=== PATIENT | female | born 1960 | race Caucasian/White ===

== ENCOUNTER → 2023-06-01 18:11 | Outpatient (REF) | payer BC, SELFPAY | LOC: WDC 18:11 | PROVIDERS: ATTENDING PHYSICIAN Obstetrics & Gynecology; FAMILY PHYSICIAN Family Medicine | DX: Z12.31 Encounter for screening mammogram for malignant neoplasm of breast (principal) | CPT/HCPCS: 77063; 77067 ==

== ENCOUNTER → 2023-12-23 11:49 | Outpatient (REF) | payer BC, SELFPAY ==
[2023-12-23 14:20] LABS: ALT (SGPT) 42 U/L (0-35); AST (SGOT) 47 U/L (14-36); Albumin 4.5 g/dl (3.5-5.0); Alkaline Phosphatase 93 U/L (38-126); Blood Urea Nitrogen 17 mg/dl (7-17); Calcium 9.8 mg/dl (8.4-10.2); Carbon Dioxide 28 mmol/L (22-30); Chloride 100 mmol/L (98-107); Glucose 95 mg/dl (70-99); Potassium 4.3 mmol/L (3.5-5.1); Sodium 140 mmol/L (135-145); Total Bilirubin 0.9 mg/dl (0.2-1.3); Total Protein 6.8 g/dl (6.3-8.2); eGFR > 60.00
== END ==
LOC: RAD 11:49
PROVIDERS: ATTENDING PHYSICIAN Family Medicine
DX: R10.32 Left lower quadrant pain (principal); R10.84 Generalized abdominal pain
CPT/HCPCS: 36415; 74177; 80053; Q9967

== ENCOUNTER → 2024-06-02 13:05 | Outpatient (REF) | payer BC, SELFPAY | LOC: WDC 13:05 | PROVIDERS: ATTENDING PHYSICIAN Obstetrics & Gynecology; FAMILY PHYSICIAN Family Medicine | DX: Z12.31 Encounter for screening mammogram for malignant neoplasm of breast (principal) | CPT/HCPCS: 77063; 77067 ==

== ENCOUNTER 2024-07-25 12:17 | Emergency (ER) | payer BC, SELFPAY ==
[2024-07-25 12:24] VITALS: BP 122/79
[2024-07-25 12:44] LABS: % Basophils 0.5 % (0-2); % Eosinophils 0.7 % (0-6); % Immature Granulocytes 0.2 % (0-0.5); % Lymphocytes 22.2 % (20.5-51.1); % Monocytes 6.9 % (1.7-9.3); % Neutrophils 69.5 % (42.2-75.2); Absolute Eosinophils 0.1 10^3/uL (0-0.7); Absolute Lymphocytes 1.9 10^3/uL (1.2-3.4); Absolute Monocytes 0.6 10^3/uL (0.1-0.6); Hemoglobin 13.6 g/dL (12.0-16.0); Mean Corp Hgb Conc. 32.4 g/dL (33.0-37.0); Mean Corpuscular Hgb 32.1 pg (27.0-31.0); Mean Corpuscular Volume 99.1 fL (81.0-99.0); Mean Platelet Volume 10.8 fL (7.4-10.4); Nucleated Red Blood Cells % 0 %; Platelet Count 211 10^3/uL (130-400); Red Blood Cell Count 4.24 10^6/uL (4.20-5.40); Red Cell Dist. Width 12.4 % (11.5-14.5); White Blood Cell Count 8.6 10^3/uL (4.8-10.8)
[2024-07-25 13:00] LABS: COVID-19 Antigen Negative (Negative)
[2024-07-25 13:09] LABS: ALT (SGPT) 43 U/L (0-35); AST (SGOT) 37 U/L (14-36); Albumin 3.7 g/dl (3.5-5.0); Alkaline Phosphatase 116 U/L (38-126); Blood Urea Nitrogen 14 mg/dl (7-17); Calcium 9.4 mg/dl (8.4-10.2); Carbon Dioxide 29 mmol/L (22-30); Chloride 104 mmol/L (98-107); Glucose 102 mg/dl (70-99); Sodium 141 mmol/L (135-145); Total Bilirubin 0.7 mg/dl (0.2-1.3); Total Protein 6.4 g/dl (6.3-8.2); eGFR > 60.00
--- NOTE | 2024-07-25 15:43 | ED.GENMED ---
History of Present Illness
General
Chief Complaint: Weakness
Source: patient
Exam Limitations: none
Time Seen by Provider: 07/25/24 15:13
History of Present Illness
History of Present Illness:
63yoF with a history of DOROTHY, IBS, and diverticulosis presenting with her daughter for evaluation of cough and weakness. Patient became sick 5 days ago. She reports a dry cough and fevers. Tmax 101.9. She also reports chest tightness and feels
like she has fluid on the left side of her chest. She denies any overt chest pain. She was seen by her PCP 3 days ago and was started on a course of cefuroxime for bronchitis. Patient reports persistent symptoms. She also feels extremely weak
and fatigued. She went to urgent care thinking she had pneumonia but was told her x-rays were normal. She was sent to the ED for evaluation. She denies any vomiting, diarrhea, abdominal pain, decreased urine output.
Past History
Past History
ED Past Medical History: Other (Diverticulosis, IBS)
ED Past Surgical History: None
Social History
Tobacco: Non-smoker
Alcohol: Occasional
Personal:
Living: with family
Employment: Employed
Phy Exam
General Physical Exam
General Presentation: well appearing and no apparent distress
General age: appears stated age
General Skin: warm and dry
General Habitus: normal
General Mental: alert
ENT Exam
ENT Exam: normocephalic
Cardiovascular Exam
Cardiovascular Exam: regular rate/rhythm, no edema and no murmur
Pulmonary Exam
Pulmonary Exam: no respiratory distress, no rhonchi, no stridor, no wheezing and other (Rales noted to L mid lung. Speaking in full sentences without difficulty.)
Neurological Exam
Neurological Exam: alert
[place] Coma Scale
Eye Opening: Spontaneous
Verbal Response: Oriented
Motor Response: Obeys Commands
GCS Total Score: 15
Skin Exam
Skin Exam: normal color and warm/dry
Psychiatric Exam
Psychiatric Exam: normal mood/affect
Course
Orders/Labs/Results
Orders:
Orders
07/25/24 12:36
COVID-19 Antigen Urgent
Source: Nasal Swab
Complete Blood Count/With Diff Urgent
Comprehensive Metabolic Panel Urgent
Influenza A+B Rapid Molecular Urgent
AGUSTÍN Source: Nasal Swab
Specimen Description:
07/25/24 15:42
Electrocardiogram (*1) Urgent
Reason for Study: Shortness of Breath
Cardiac Monitoring- Treatment ONCE
EKG- Treatment ONCE
0.9% Sodium Chloride 1000 ml [Nss] 1,000 ml IV BOLUS
07/25/24 16:18
Troponin I Urgent
Abnormal Lab Results
07/25/24
12:36
MCV 99.1 H fL
(81.0-99.0)
MCH 32.1 H pg
(27.0-31.0)
MCHC 32.4 L g/dL
(33.0-37.0)
MPV 10.8 H fL
(7.4-10.4)
Glucose 102 H mg/dl
(70-99)
AST 37 H U/L
(14-36)
ALT 43 H U/L
(0-35)
07/25/24 12:36
07/25/24 12:36
Vital Signs
Initial and Last Documented VS:
Initial Vital Signs
Temp Pulse Resp BP Pulse Ox
98.8 F 79 18 122/79 98
07/25/24 12:24 07/25/24 12:24 07/25/24 12:24 07/25/24 12:24 07/25/24 12:24
Last Documented Vital Signs
Temp Pulse Resp BP Pulse Ox
98.8 F 75 24 119/58 97
07/25/24 12:24 07/25/24 18:11 07/25/24 17:00 07/25/24 18:11 07/25/24 18:11
MDM/Problems Addressed
Differential Diagnosis Includes:
63yoF here with cough and weakness x 5 days. Diagnosed with bronchitis by PCP and on cefuroxime. Went to urgent care today thinking she had pneumonia. CXR was normal so was sent to the ED for evaluation. VSS. Oxygen saturation 98% on room air. She
is non toxic-appearing. Rales noted to the left midlung on exam. No signs of respiratory distress. Differential diagnosis includes but is not limited to: Pneumonia, bronchitis, viral illness
Labs obtained in triage. White count is normal. Mild transaminitis present which is unchanged from prior. COVID/flu testing negative. Troponin and EKG added. EKG shows NSR without ischemic changes and troponin WNL. Patient given fluid bolus during
ED stay. Vitals remain normal. No indication for hospitalization. Suspect early pneumonia given rales on exam. Will add doxycycline for atypical coverage. Advised close follow-up with PCP and ED return precautions reviewed. Patient and daughter in
agreement with plan and patient was discharged in stable condition.
*EKG
Interpreted by ED Provider?: Yes
EKG Intrepretation Date: 07/25/24
Heart Rate: 72
Rate: normal
Rhythm: sinus
[place]: normal axis
Interval: normal interval
QRS Pattern: normal QRS
Ischemia: no ischemia
*Critical Care Note
Total Time (30-74mins, 75-104mins- exclusive of procedures): Not Applicable
ED Attending Note
-
Portions of this chart may have been created with voice recognition software.� Occasional wrong word or��sound alike� substitutions may have occurred due to the inherent limitations of voice recognition software.
Discharge Plan
Departure
Patient Disposition: Home (Routine Discharge)
Date of Disposition: 07/25/24
Time of Disposition: 17:09
Patient with high blood pressure during this ER visit?: No
Discharge Problem:
Pneumonia, Generalized weakness
Instructions: Community-acquired pneumonia in adults
Prescriptions:
New
doxycycline hyclate 100 mg capsule
100 mg PO BID Qty: 14 0RF
No Action
azithromycin 500 MG tablet
500 mg PO .WEEKLY
Referrals:
Ike Hsu MD [Family Provider] -
Activity Restrictions/Additional Instructions:
Continue taking cefuroxime. Take doxycycline as prescribed. Drink plenty of fluids and rest.
Please follow-up with your family doctor in 3 to 4 days. Return to the ER with any new or worsening symptoms including trouble breathing.
Interventions
Interventions:
*Risk Screen - Suicide Last Done: 07/25/24 12:29
*General Assessment Last Done: 07/25/24 17:10
*Neglect/Abuse Screening Last Done: 07/25/24 12:29
*ED- Fall Risk Assessment Last Done: 07/25/24 17:10
*ED COVID-19 Vaccine History Last Done: 07/25/24 17:10
*Nursing Disposition Last Done: 07/25/24 18:11
ED- Cardiac Assessment Last Done: 07/25/24 18:10
ED- Neurological Assessment Last Done: 07/25/24 18:10
ED- Pulmonary Assessment Last Done: 07/25/24 18:10
Discharge Date and Time
Discharge Date/Time: 07/25/24 18:12
Print Language: IRISH
[2024-07-25 16:11] VITALS: BMI 21.8
[2024-07-25 16:18] VITALS: BP 118/84
[2024-07-25] MEDS: NSS 1000 IV (16:23)
[2024-07-25 16:55] LABS: Troponin I < 0.012 ng/ml
[2024-07-25 17:00] VITALS: BP 119/58
[2024-07-25 18:11] VITALS: BP 119/58
== END 2024-07-25 18:12 | disposition home or self-care (01) ==
LOC: EMR 12:17
PROVIDERS: Physician Assistant; Student in an Organized Health Care Education/Training Program; EMERGENCY PHYSICIAN Emergency Medicine; FAMILY PHYSICIAN Family Medicine
DX: J18.9 Pneumonia, unspecified organism (principal); R53.1 Weakness; Z11.52 Encounter for screening for COVID-19
CPT/HCPCS: 99284; 96360; 80053; 84484; 85025; 87502; 87811; 93005

== ENCOUNTER → 2025-01-18 12:46 | Outpatient (REF) | payer BC, SELFPAY | LOC: RAD 12:46 | PROVIDERS: FAMILY PHYSICIAN Family Medicine | DX: J40 Bronchitis, not specified as acute or chronic (principal) | CPT/HCPCS: 71250 ==